=== PATIENT | female | born 1985 | race Caucasian/White ===

== ENCOUNTER 2019-10-14 12:33 | Outpatient (CLI) | payer OTHER, SELFPAY ==
--- NOTE | ~2019-10-14 | XR_ITS ---
EXAMINATION: XR knee LT 3V DATE: 10/14/2019 12:54 INDICATION: Left knee pain. TECHNIQUE: 3 views of left knee were obtained. COMPARISON: None. FINDINGS: There is lateral subluxation of patella. No fracture. There is mild osteoarthritis of milligan lofemoral compartment. There is a moderate-sized knee joint effusion. IMPRESSION: 1. Mild left knee osteoarthritis. 2. Moderate-sized left knee joint effusion. Reviewed, dictated and finalized at location A.
== END 2019-10-14 12:34 | disposition home or self-care (01) ==
PROVIDERS: PCP Family Medicine; Visit Provider Family Medicine
DX: M25.562 Pain in left knee (principal); M17.12 Unilateral primary osteoarthritis, left knee; M25.462 Effusion, left knee
CPT/HCPCS: 73562

== ENCOUNTER 2020-07-17 19:10 | Emergency (ER) | payer BC, SELFPAY ==
[2020-07-17 19:13] VITALS: BP 141/70; PULSE 89; RESP 20; TEMP 36.1; O2SAT 100
--- NOTE | 2020-07-17 20:29 | PC.NURSE ---
Pt. up to triage desk asking how much longer? There are people that have gotten here after me that have gone back before me. RN educated pt. that the process of triage is to have pt.'s that are more acute to be pulled back to a room first. Pt. states I get that, I literally have an infection in my butt. RN informed pt. that the process is to pull pt.'s who are more critical back first. Pt. walked away before RN was finished talking.
--- NOTE | 2020-07-17 21:42 | ED.GENADULT ---
HPI - General Adult General Chief complaint: Wound/Laceration Stated complaint: Infection in my bottom Time Seen by Provider: 07/17/20 21:41 Source: patient and family () Mode of arrival: ambulatory Limitations: no limitations History of Present Illness HPI narrative: 34-year-old female here for evaluation of a abscess on her buttocks. She has been seen by a surgeon in the past for similar complaints and was scheduled to have surgery for repair of a possible fistula this but found out today that her insurance is no longer valid for that provider. So she came in today for evaluation, treatment of pain and referral to a surgeon. She denies any fever or chills, she is not diabetic. 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 She had surgery for similar complaint back in January or February. She is currently on an antibiotic but unsure what the name is, her is investigating that. Onset (ago): day(s) Quality: sharp Pain Consistency: intermittent (with walking or sitting.) Associated symptoms: denies other symptoms Treatments prior to arrival: NSAID Related Data Allergies Allergy/AdvReac Type Severity Reaction Status Date / Time No Known Allergies Allergy Mild Unverified 04/30/18 08:56 Review of Systems Review of Systems: All systems reviewed & are unremarkable except as noted in HPI and below FOR[facility]LY [facility] Past Medical History Medical History (Updated 07/17/20 @ 22:11 by Alyx Ventura PA-C) Abscess of buttock, right possible fistula Social History Social History Smoking status: Never smoker Alcohol intake: never Substance use: never Exam Const: General: no acute distress Nutritional Appearance: obese Resp: Effort & Inspection: normal respiratory effort Auscultation: clear to auscultation bilaterally Cardio: Rate: regular rate Rhythm: regular rhythm GI: Inspection: Pannus present Rectal Exam: visual inspection normal and normal sphincter tone Other: no blood or other drainage on glove. no palpable mass in rectum. There is an open area on right gluteal fold, no drainage or firm mass, but tender to touch. Appears that abscess has drained. Skin: General skin exam: normal color Psych: Affect: Anxious affect present Course Course Emergency Course: antibiotic ointment applied to open area on right buttock. Pt is taking Levoquin in prep for surgery, will continue for 3 more days. and refer to surgery. will also treat pain. Vital Signs Vital signs: Vital Signs Temperature 36.1 C L 07/17/20 19:13 Pulse Rate 89 07/17/20 19:13 Respiratory Rate 20 07/17/20 19:13 Blood Pressure 141/70 H 07/17/20 19:13 Pulse Oximetry 100 07/17/20 19:13 Temperature 36.1 C L 07/17/20 19:13 Pulse Rate 89 07/17/20 19:13 Respiratory Rate 20 07/17/20 19:13 Blood Pressure 141/70 H 07/17/20 19:13 Pulse Oximetry 100 07/17/20 19:13 Medical Decision Making Vital Signs Vital Signs: Vital Signs Temperature 36.1 C L 07/17/20 19:13 Pulse Rate 89 07/17/20 19:13 Respiratory Rate 20 07/17/20 19:13 Blood Pressure 141/70 H 07/17/20 19:13 Pulse Oximetry 100 07/17/20 19:13 Temperature 36.1 C L 07/17/20 19:13 Pulse Rate 89 07/17/20 19:13 Respiratory Rate 20 07/17/20 19:13 Blood Pressure 141/70 H 07/17/20 19:13 Pulse Oximetry 100 07/17/20 19:13 Discharge Plan Discharge Clinical Impression: Abscess of buttock, right Patient Disposition: Home, Self-Care Condition: Stable Instructions: Antibiotic Form, Abscess (ED) Additional Instructions: It appears your abscess is opened and drained spontaneously. I have given you a name for a surgeon at this facility, call in the morning to make an appointment. I have continued her antibiotics for total of 7 days. May apply antibiotic ointment to the open area in your right buttocks and I have given you some pain medication. Please take
[2020-07-17 22:27] VITALS: BP 138/94; PULSE 85; RESP 20; O2SAT 97
[2020-07-17] MEDS: HYDROcodone/acetaminophen (*CRX) 5-325 MG TABLET 1 TAB PO (22:33)
== END 2020-07-17 22:35 | disposition home or self-care (01) ==
PROVIDERS: Emergency Provider Emergency Medicine; PCP Family Medicine
DX: L02.31 Cutaneous abscess of buttock (principal)
CPT/HCPCS: 99283; A9270

== ENCOUNTER → 2020-07-23 09:32 | Outpatient (CLI) | payer BC, SELFPAY ==
[2020-07-23 18:03] LABS: SARS-CoV-2 RNA PCR Negative
== END ==
PROVIDERS: PCP Family Medicine; Visit Provider Surgery
DX: Z01.812 Encounter for preprocedural laboratory examination (principal); Z20.822 Contact with and (suspected) exposure to COVID-19
CPT/HCPCS: C9803; U0003; U0005

== ENCOUNTER 2020-07-25 02:18 | Day surgery (SDC) | payer BC, SELFPAY ==
[2020-07-24 09:52] VITALS: BMI 46.8
[2020-07-25] VITALS (9 sets, daily range): BP systolic 104–123; BP diastolic 51–69; PULSE 79–103; RESP 16–23; TEMP 36.6–36.7; O2SAT 97–100; BMI 46.8
--- NOTE | 2020-07-25 10:38 | WPDHPUPDATE1 ---
History and Physical Update Update Date/Time: 07/25/20 10:38 History and Physical has been reviewed, including an updated exam of the patient. There are NO changes in the patient's condition. Risks, benefits, and alternatives have been discussed and questions answered. Patient agrees to proceed with procedure.
[2020-07-25] MEDS: LACTATED RINGERS 1,000 ML 30 ML IV CONT ×2 (10:50→15:00)
[2020-07-25] MEDS: KETOROLAC 15 MG/ML VIAL (*BKC) IV PUSH (10:50)
[2020-07-25] MEDS: ACETAMINOPHEN 500 MG TABLET 1000 MG PO (10:51)
--- NOTE | 2020-07-25 11:10 | P.PNAN_ITS ---
Anes - Initial Pre Proc Eval Procedure: Operation Date: 07/25/20 12:00 Proposed Procedures p Rectal Exam Under Anesthesia, Possible Fistulotomy, Possible Seton Placement - Elio Phan MD Date/Time: 07/25/20 11:10 Surgeon: Elio Phan MD Pre Op Diagnosis: left sided anal fistula, external hemorrhoid Patient Data Age: 35 Gender: F Height: 5 ft 1 in Weight: 112.5 kg Last Vital Signs Temp 36.7 C 07/25/20 10:31 Pulse 80 07/25/20 10:31 Resp 20 07/25/20 10:31 BP 111/57 L 07/25/20 10:31 Pulse Ox 100 07/25/20 10:31 Allergies Allergy/AdvReac Type Severity Reaction Status Date / Time No Known Allergies Allergy Mild Verified 07/25/20 10:19 Home Medications Medication Instructions Recorded Confirmed Type amitriptyline 10 mg tablet 10 mg PO QHS 07/18/20 07/25/20 History trazodone 50 mg tablet 50 mg PO QHS PRN 07/18/20 07/25/20 History fenofibrate 160 mg PO HS 07/24/20 07/24/20 History Patient hx anesthesia problems: none Family hx anesthesia problems: none PMFSH Past Medical History Medical History Abscess of buttock, right possible fistula Anxiety Asthma Hx of migraines Surgical History Surgical History History of delivery History of rectal surgery History of tonsillectomy Family History Family History Other No pertinent family history Social History Social History Smoking status: Never smoker Second hand tobacco smoke exposure: No Alcohol intake: never Substance use: never Living arrangements: with family 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 Questions were solicited and answers provided to the satisfaction of the patient/family/POA.
--- NOTE | 2020-07-25 13:12 | SUR.PREOP ---
PT AND MOTHER UPDATED. WILL BE ANOTHER 30 MINUTES
[2020-07-25] MEDS: ceFAZolin 2 GM/D5W 50 ML 2 GM/50 ML BAG IVPB (13:50)
[2020-07-25] MEDS: BUPIVACAINE/EPINEPHRINE 0.5% 30 ML VIAL INFILTRATE (14:25)
[2020-07-25] MEDS: METHYLENE BLUE 0.5% INJ 10 ML AMPULE 20 ML IRRIGATION (14:28)
--- NOTE | 2020-07-25 15:11 | P.OP_ITS ---
Procedure Note - Detailed Date of procedure: 07/25/20 Pre-op diagnosis: left sided anal fistula, external hemorrhoid Post-op diagnosis: same Procedure performed: 1. Rectal examination under anesthesia 2. Left-sided fistulotomy 3. Left-sided anal papillectomy Description of procedure: The patient was seen in the preoperative area. I confirmed that she had done fleets enemas last night and this morning. Following this the patient was taken back to the operating room and after being placed in supine position she underwent endotracheal intubation with general anesthesia induction. Following this she was placed in the lithotomy position in the low [facility]. The perineum was carefully prepped and draped in usual sterile fashion. Following this using a SDI life a carefully performed an examination under anesthesia. This entailed using 2 different size anal retractors I circumferentially inspected the anal area there was a posterior left lying somewhat enlarged external hemorrhoid that was not bleeding or irritated. This was left alone. On the left side at about the dentate line there was a small papillotomy papilloma this was cauterized with Bovie cautery and destroyed. No specific areas of inflammation were seen to suggest internal opening to the fistula. Following this with a rectal retractors exposing the left half of the anal area anal canal and some of the lower rectum I carefully probed the opening which was in approximately the 4 to 5 o'clock position left side of the anal opening posteriorly. This probe to be going slightly anteriorly it would probe about 3 cm deep. We gradually increase the size the probe and then I was able to place a 18 gauge angiocath catheter into the opening using a mixture of saline and methylene blue we injected the external opening and I saw that the dye came in anteriorly just above the dentate line. I therefore then placed a medium-size fistulotomy probe as far as it would go into the opening and began incising this starting from the open external opening toward the internal opening going anteriorly and then into the anal canal and up to the internal opening opening is completely. Bovie cautery was used for hemostasis. This completed the fistulotomy. I then again circumferentially inspected the anal opening we stopped all bleeding in the fistulotomy wound. Local anesthetic was infiltrated into the tissue around the fistulotomy wound. 0.5% Marcaine with epi was used. Following this a piece of Gelfoam was obtained that is approximately 5 x 8 cm long local anesthetic was applied to it along with some lubricant this was rolled and then using the anal retractors we carefully allowed this to sit in the anal canal with partially upper part in the rectum other parts partially extruding from the anal opening and Rudy in the fistulotomy wound. Two folded 4x4s were applied over this. [employer] party pants applied. It was noted the patient had significant reddish excoriation in the groin creases and underneath the flap of her abdomen. Therefore I sent her a prescription for nystatin powder to apply these areas twice daily after Sitz baths. Anesthesia: GETA Surgeon: Elio Phan MD Aircraft Motor Mechanic: DAISY Lemon, OR 1st assist Estimated blood loss (mL): 15 Drains: No Packing: Yes (Folded piece of Gelfoam saturated with loop and 0.5% Marcaine with epi) Pathology: none sent Complications: No immediate complications Condition: stable Disposition: PACU Findings: 1. Small papilloma at the anal margin left side 2. Fistula tracking from the left-sided external opening to an anterior anal gland. ( simple fistula between the superficial internal anal sphincter and the anal opening)
--- NOTE | 2020-07-26 07:54 | WPDANESPN ---
Anes - Prog Note Post-Op Date/Time: 07/26/20 07:54 Cardiovascular status: normal Respiratory status: normal Airway patency: baseline Mental status: baseline Post-Op hydration status: normal Vital Signs: Last Vital Signs Temp 97.8 F 07/25/20 15:00 Pulse 81 07/25/20 16:25 Resp 18 07/25/20 16:25 BP 123/66 07/25/20 16:25 Pulse Ox 97 07/25/20 15:45 Pain Score (VAS): 10 I/O: Intake & Output 07/25/20 07/25/20 07/26/20 15:59 23:59 07:59 Intake Total 50 150 Balance 50 150 Patient Feedback: Patient satisfied with anesthetic care.
== END 2020-07-25 16:38 | disposition home or self-care (01) ==
PROVIDERS: PCP Family Medicine; Visit Provider Surgery
PROC: (CPT 46270; principal; 2020-07-25 12:00)
DX: K60.3 Anal fistula (principal); D12.9 Benign neoplasm of anus and anal canal; L98.8 Other specified disorders of the skin and subcutaneous tissue; F41.9 Anxiety disorder, unspecified; E66.01 Morbid (severe) obesity due to excess calories; Z68.42 Body mass index [BMI] 45.0-49.9, adult
CPT/HCPCS: 46270; A9270; J0330; J0690; J1100; J1885; J2250; J2405; J2704; J3010; J7120; Q9968